=== PATIENT | female | born 1975 | race Caucasian/White ===

== ENCOUNTER 2019-01-02 13:57 | Emergency (ER) | payer OTHER ==
[~2019-01-02] VITALS: Ht 160 cm; Wt 77.1 kg
[2019-01-02] MEDS ORDERED: ZANAFLEX4 MG PO (15:58)
[2019-01-02] MEDS ORDERED: NABUMETONE 750750 M1 PO (15:58)
[2019-01-02 16:06] VITALS: BP 124/57
== END 2019-01-02 16:07 | disposition home or self-care (01) ==
LOC: M.ERS 13:57
DX: S70.11XA Contusion of right thigh, initial encounter (principal); S70.01XA Contusion of right hip, initial encounter; S70.212A Abrasion, left hip, initial encounter; Z90.710 Acquired absence of both cervix and uterus; W01.0XXA Fall on same level from slipping, tripping and stumbling without subsequent striking against object, initial encounter; Y93.89 Activity, other specified; Y92.89 Other specified places as the place of occurrence of the external cause; Y99.8 Other external cause status

== ENCOUNTER 2019-02-25 04:55 | Emergency (ER) | payer OTHER ==
[~2019-02-25] VITALS: Ht 160 cm; Wt 117.9 kg
[~2019-02-25 04:55] MED LIST: NABUMETONE 750750 M1 PO; ZANAFLEX4 MG PO
[2019-02-25 05:32] LABS: ABSOLUTE BASOPHILS 0.1 thou/uL (0.0-0.2); ABSOLUTE EOSINOPHILS 0.1 thou/uL (0.0-0.7); ABSOLUTE LYMPHOCYTES 5.1 thou/uL (0.8-5.3); ABSOLUTE MONOCYTES 0.6 thou/uL (0.0-1.2); ABSOLUTE NEUTROPHILS 5.8 thou/uL (1.6-8.1); BASOPHILS 0.5 %; EOSINOPHILS 1.2 %; HEMOGLOBIN 14.6 gm/dL (12.0-15.0); LYMPHOCYTES 43.9 %; MCH 30.2 pg (26.0-34.0); MCHC 32.5 g/dL (28.0-37.0); MCV 93.1 fL (80.0-100.0); MPV 8.4 fl. (7.2-11.1); NUCLEATED RBCS 0 /100WBC; PLATELET COUNT* 295 thou/uL (150-400); POLYS 49.4 %; RBC 4.83 mil/uL (4.20-5.00); RDW-CV 13.4 % (10.5-14.5); WBC 11.7 thou/uL (4.0-11.0)
[2019-02-25] MEDS ORDERED: NORCO 7.5-3251 EACH PO (06:31)
[2019-02-25] MEDS ORDERED: ZOFRAN ODT4 MG PO (06:32)
[2019-02-25] MEDS ORDERED: PERCOCET 7.5-31 EACH PO (06:32)
[2019-02-25 06:45] VITALS: BP 107/56
== END 2019-02-25 06:47 | disposition home or self-care (01) ==
LOC: M.ERS 04:55
PROVIDERS: Emergency Medicine
DX: N20.0 Calculus of kidney (principal); Z90.710 Acquired absence of both cervix and uterus

== ENCOUNTER 2019-03-27 06:32 | Emergency (ER) | payer OTHER ==
[~2019-03-27] VITALS: Ht 160 cm; Wt 108.9 kg
[~2019-03-27 06:32] MED LIST changes: +NORCO 7.5-3251 EACH PO; +PERCOCET 7.5-31 EACH PO; +ZOFRAN ODT4 MG PO
[2019-03-27 07:03] LABS: URINE BILIRUBIN NEGATIVE (Negative); URINE BLOOD TRACE (Negative); URINE CLARITY CLEAR; URINE COLOR ORANGE; URINE GLUCOSE-RANDOM 1+ (Negative); URINE KETONES TRACE (Negative); URINE LEUKOCYTES-REFLEX NEGATIVE (Negative); URINE NITRITE-REFLEX POSITIVE (Negative); URINE PROTEIN 2+ (Negative); URINE SPECIFIC GRAVITY >= 1.030 (1.005-1.030)
[2019-03-27 07:06] LABS: CASTS None Seen /LPF (None Seen); CRYSTALS None Seen /LPF (None Seen); MUCUS 4-6 Moderate strn/LPF (None Seen); SQUAMOUS 4-10 Moderate /LPF (0-3); URINE RBC 0-2 Rare /HPF (0-2); URINE WBC-REFLEX 0-5 Rare /HPF (0-5)
[2019-03-27 07:21] LABS: ABSOLUTE BASOPHILS 0.2 thou/uL (0.0-0.2); ABSOLUTE EOSINOPHILS 0.1 thou/uL (0.0-0.7); ABSOLUTE LYMPHOCYTES 4.5 thou/uL (0.8-5.3); ABSOLUTE MONOCYTES 0.7 thou/uL (0.0-1.2); ABSOLUTE NEUTROPHILS 5.3 thou/uL (1.6-8.1); BASOPHILS 1.4 %; EOSINOPHILS 1.2 %; HEMATOCRIT 42.2 % (37.0-47.0); HEMOGLOBIN 14.2 gm/dL (12.0-15.0); LYMPHOCYTES 41.7 %; MCH 30.9 pg (26.0-34.0); MCHC 33.6 g/dL (28.0-37.0); MCV 92.1 fL (80.0-100.0); MONOCYTES 6.4 %; MPV 8.7 fl. (7.2-11.1); NUCLEATED RBCS 0 /100WBC; PLATELET COUNT* 321 thou/uL (150-400); POLYS 49.3 %; RBC 4.59 mil/uL (4.20-5.00); RDW-CV 12.7 % (10.5-14.5); WBC 10.8 thou/uL (4.0-11.0)
[2019-03-27 07:32] LABS: ALBUMIN 4.2 g/dL (3.4-5.0); CALCIUM 9.2 mg/dL (8.5-10.1); CREATININE 1.1 mg/dL (0.6-1.3); POTASSIUM 3.5 mmol/L (3.5-5.1); TOTAL BILIRUBIN 0.3 mg/dL (<0.1-1.0); TOTAL PROTEIN 7.5 g/dL (6.4-8.2)
[2019-03-27] MEDS ORDERED: FLOMAX0.4 MG PO (08:54)
[2019-03-27] MEDS ORDERED: ZOFRAN4 MG PO (08:54)
[2019-03-27] MEDS ORDERED: PERCOCET 5-3251 EACH PO (08:54)
[2019-03-27 09:21] VITALS: BP 138/92
== END 2019-03-27 09:18 | disposition home or self-care (01) ==
LOC: M.ERS 06:32
PROVIDERS: Personal Emergency Response Attendant
DX: N20.1 Calculus of ureter (principal); F17.200 Nicotine dependence, unspecified, uncomplicated; Z87.442 Personal history of urinary calculi; Z90.710 Acquired absence of both cervix and uterus